=== PATIENT | male | born 1940 | race Caucasian/White ===

== ENCOUNTER 2024-10-11 18:42 | Inpatient (IN) | payer MEDICARE, OTHER ==
[~2024-10-11] VITALS: Ht 162.6 cm; Wt 90.6 kg
[~2024-10-11 18:42] MED LIST: ALLO100T PO; ALLUPURINOL; AMLO1TAB21 PO; ASA; CALC-30; GLUCOSAMINE; LIPITOR; METO-289 PO; METOPROLOL; NAP500T PO; OMEP20CA74 PO; OMEPRAZOLE; RAMI10CA38 PO; RAMIPRIL; SIMV20TA20 PO; TAFL1DRO OP; TAMS0.4C39 PO; TAMSULOSIN; TRAM50TA2 PO
--- NOTE | 2024-10-11 18:57 | ECG ---
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
--- NOTE | 2024-10-11 18:58 | ED.PDOC ---
History of Present Illness HPI Comments 83 y.o male with PMHx of HTN, DM, hyperlipidemia, prostate cancer, presents to the ED via EMS for a chief complaint of generalized weakness. EMS reports patient's friend took him to urgent care due to his weakness, was diagnosed with a UTI and discharged home. Patient then had a sudden episode of tremors with increased weakness and friend called 911. EMS reported EKG read AFIB RVR, gave 1 liter bag of IV fluids brining HR down to 100. Patient denies any chest pain, palpitations, SOB, nausea, vomiting, diarrhea, recent illness, fever, chills or leg swelling. Patient mentions recent mechanical fall on 09/25/24 which he had stitches placed on his forehead and removed on 10/07/24. Patient had a CT scan done then but no repeat. He denies any head pain, dizziness, lightheadedness. Chief Complaint: Tremors Time Seen by MD: 18:47 Primary Care Provider: ADE Hyman Notes: Nurses Notes, Nail Machine Operator Notes, Medications, Allergies Allergies: Uncoded Allergies: PCN (Allergy, 03/10/11) Home Meds Reported Medications Tafluprost (ZIOPTAN) 0.0015 % Presley, 0.0015 % OP, PRESLEY 11/21/14 Tramadol Hcl (Tramadol Hcl) 50 Mg Tab, 50 MG PO TID, TAB 11/21/14 Tamsulosin Hcl (Tamsulosin Hcl) 0.4 Mg Cap, 0.4 MG PO HS, CAP 11/21/14 Simvastatin (Simvastatin) 20 Mg Tab, 1 TAB PO QPM, #90 TAB 3 Refills 11/21/14 Ramipril (Ramipril) 10 Mg Cap, 10 MG PO HS, CAP 11/21/14 Omeprazole (PRILOSEC) 20 Mg Cap, 40 MG PO HS, CAP 15 Naproxen (NAPROSYN TABLET) 500 Mg Tb, 1 TAB PO BID, #60 TAB 11/21/14 Metoprolol Succinate (Metoprolol Succinate Er) 50 Mg Tab, 50 MG PO DAILY, TAB 11/21/14 Amlodipine Besylate (Amlodipine Besylate) 2.5 Mg Tab, 2.5 MG PO HS, TAB 11/21/14 Allopurinol (Allopurinol) 100 Mg Tab, 100 MG PO DAILY for 30 Days, MG 11/21/14 [Glucosamine] No Conflict Check 03/10/11 Calcium Carbonate-Vitamin D (Calcium) Tab 03/10/11 [Asa] No Conflict Check 03/10/11 [Tamsulosin] No Conflict Check 03/10/11 [Ramipril] No Conflict Check 03/10/11 [Omeprazole] No Conflict Check 03/10/11 [Metoprolol] No Conflict Check 03/10/11 [Lipitor] No Conflict Check 03/10/11 [Allupurinol] No Conflict Check 03/10/11 Information Source: Patient, Emergency Med Personnel Mode of Arrival: EMS Timing: Hours Duration: Since onset Past Medical History PAST MEDICAL HISTORY: CAD, Cancer, DM, Gout, HTN Surgical History: PTCA Surgical History (Other): bilateral hip and right knee replacement, Back stimulator, bariatric, cataracts Family History Family History: Unknown Social History Smoker: Non-Smoker Alcohol: Denies ETOH Use Drugs: Denies Drug Use Lives In: Home Constitutional: reports: weakness; denies: chills, diaphoresis, fatigue, fever, malaise, sweats, others EENTM: denies: blurred vision, double vision, ear bleeding, ear discharge, ear drainage, ear pain, ear ringing, eye pain, eye redness, hearing loss, mouth pain, mouth swelling, nasal discharge, nose bleeding, nose congestion, nose p ain, photophobia, tearing, throat pain, throat swelling, voice changes, others Respiratory: denies: cough, hemoptysis, orthopnea, SOB at rest, shortness of breath, SOB with excertion, stridor, wheezing, others Cardiovascular: denies: chest pain, dizzy spells, diaphoresis, Dyspnea on exertion, edema, irregular heart beat, left arm pain, lightheadedness, palpitations, PND, syncope, others Gastrointestinal: denies: abdomen distended, abdominal pain, blood streaked bowels, constipated, diarrhea, dysphagia, difficulty swallowing, hematemesis, melena, nausea, poor appetite, poor fluid intake, rectal bleeding, rectal pain, vomiting, others Genitourinary: denies: burning, dysuria, flank pain, frequency, hematuria, incontinence, penile discharge, penile sore, pain, testicle pain, testicle swelling, urgency, others Neurological: reports: tremors; denies: dizziness, fainting, headache, left sided numbness, left sided weakness, numbness, paresthesia, pre-existing deficit, right sided numbness, right sided weakness, seizure, speech problems, tingling, weakness, others Musculoskeletal: denies: back pain, gout, joint pain, joint swelling, muscle pain, muscle stiffness, neck pain, others Integumetry: denies: bruises, change in color, change in hair/nails, dryness, laceration, lesions, lumps, rash, wounds, others Allergic/Immunocompromised: denies: Difficulty Healing, Frequent Infections, Hives, Itching, others Hematologic/Lymphatic: denies: anemia, blood clots, easy bleeding, easy bruising, swollen glands, others Endocrine: denies: excessive hunger, excessive sweating, excessive thirst, excessive urination, flushing, intolerance to cold, intolerance to heat, unexplained weight gain, unexplained weight loss, others Psychiatric: denies: anxiety, bipolar disorder, depression, hopeless, panic disorder, schizophrenia, sleepless, suicidal, others All Other Systems: Reviewed and Negative Physical Exam General Appearance: Moderate Distress HEENT: Pale Conjuntivae (L), Pale Conjuntivae (R), Pharynx Normal, TMs Normal, Other (The patient has an old wound that has Steri-Strips to the forehead. The patient has ecchymosis around the facial area) Neck: Full Range of Motion, Non-Tender, Normal, Normal Inspection Respiratory: Chest Non-Tender, Lungs Clear, No Accessory Muscle Use, No Respiratory Distress, Normal Breath Sounds Cardiovascular: No Edema, No JVD, No Murmur, No Gallop, Normal Peripheral Pulses, Regular Rate/Rhythm Breast Exam: Deferred Gastrointestinal: No Organomegaly, Non Tender, No Pulsatile Mass, Normal Bowel Sounds, Soft Genitalia: Deferred Pelvic: Deferred Rectal: Deferred Extremities: No calf tenderness, Normal capillary refill, No pedal edema Musculoskeletal : Apperance: Normal Neurologic: Alert, can technician II-XII nml as Tested, Motor Weakness, Normal Affect, Normal Mood, No Sensory Deficits Cerebellar Function: Normal Reflexes: Normal Skin: Dry, Pallor, Warm Lymphatic: No Adenopathy Was a procedure done? Was a procedure done?: No EKG EKG : Pulse Rate (adult): 109 [place]: Normal Cardiac Rhythm: ST Differential Dx Considerations may include: Dehydration, Electrolyte Imbalance, Viral Syndrome, AFIB, Sinus tachycardia X-Ray, Labs, Meds, VS Vital Signs Date Time Temp Pulse Resp B/P (MAP) Pulse Ox O2 Delivery O2 Flow Rate FiO2 10/11/24 18:58 109 10/11/24 18:52 109 10/11/24 18:42 98.0 115 16 111/68 (82) 97 98.0 Lab Test 10/11/24 20:11 10/11/24 19:25 Range/Units Troponin I High Sensitivity 88 *H 53 </=54 ng/L White Blood Count 8.7 4.4-10.8 10^3/uL Red Blood Count 3.73 L 4.5-5.90 10^6/uL Hemoglobin 12.1 L 13.5-17.5 g/dL Hematocrit 35.2 L 41.0-53.0 % Mean Corpuscular Volume 94.4 80.0-100.0 fL Mean Corpuscular Hemoglobin 32.3 H 28.0-32.0 pg Mean Corpuscular Hemoglobin Concent 34.3 32.0-36.0 g/dL Red Cell Distribution Width 13.8 11.8-14.3 % Platelet Count 134 L 140-450 10^3/uL Mean Platelet Volume 9.9 6.9-10.8 fL Neutrophils (%) (Auto) 97.6 H 37.0-80.0 % Lymphocytes (%) (Auto) 1.0 L 10.0-50.0 % Monocytes (%) (Auto) 1.1 0.0-12.0 % Eosinophils (%) (Auto) 0.2 0.0-7.0 % Basophils (%) (Auto) 0.1 0.0-2.0 % Neutrophils # (Auto) 8.5 1.6-8.6 10 ^3/uL Lymphocytes # (Auto) 0.1 L 0.4-5.4 10 ^3/uL Monocytes # (Auto) 0.1 0-1.3 10 ^3/uL Eosinophils # (Auto) 0 0-0.8 10 ^3/uL Basophils # (Auto) 0 0-0.2 10 ^3/uL Nucleated Red Blood Cells 0.1 % Sodium Level 138 136-145 mmol/L Potassium Level 3.5 3.5-5.1 mmol/L Chloride Level 107 98-107 mmol/L Carbon Dioxide Level 16 L 20-31 mmol/L Anion Gap 15 5-15 Blood Urea Nitrogen 33 H 9-23 mg/dL Creatinine 0.91 0.700-1.30 mg/dL Glomerular Filtration Rate Calc 85 >90 mL/min BUN/Creatinine Ratio 36.3 H 10.0-20.0 Serum Glucose 69 L 74-106 mg/dL Calcium Level 8.1 L 8.7-10.4 mg/dL IV Hep-Lock was established The patient's CBC shows a hemoglobin of 12.1 and hematocrit of 36.2 The chemistry panel shows a CO2 level of 16 The rest of the CBC and chemistry panel are within normal limits The chest x-ray shows: IMPRESSION: No acute cardiopulmonary disease. Finding may represent vessel on end with prominent lymph nodes/mass not excluded. Consider CT for further evaluation if clinically indicated. At this time, the patient was being admitted The 1st troponin level came back within normal range but the 2nd troponin level came back at 88 There is a concern that the chest pain continues to elevate The patient was being admitted Images Reviewed?: Images reviewed and evaluated by me Time of 1ST Reevaluation: 18:51 Reevaluation 1ST: Unchanged Patient Education/Counseling: Diagnosis, Treatment, Prognosis Family Education/Counseling: No Family Present Departure 1 Departure Time of Disposition: 21:20 Impression: Primary Impression: Generalized weakness Additional Impression: Elevated troponin Disposition: ADMITTED INPATIENT Admit to: [facility] Condition: Fair Critical Care Note Critical Care Time?: Yes (45 min-critical care time only) Stability Stability form required: Yes Unstable for transfer: Telemetry monitoring (Telemetry monitoring required), ED Physician Assesment (Clinical assesment) I personally scribed for CHASTITY MORALES MD ([email or web address]) on 10/11/24 at 18:58. Electronically submitted by Anne-Marie Ruiz ([facility]). CHASTITY MORALES MD October 11, 2024 18:58
[2024-10-11 19:36] LABS: Basophils # (auto) 0 10 ^3/uL (0-0.2); Basophils % (auto) 0.1 % (0.0-2.0); Eosinophils # (auto) 0 10 ^3/uL (0-0.8); Eosinophils % (auto) 0.2 % (0.0-7.0); Hematocrit 35.2 % (41.0-53.0); Hemoglobin 12.1 g/dL (13.5-17.5); Lymphocytes # (auto) 0.1 10 ^3/uL (0.4-5.4); Mean Corpuscular Hemoglobin 32.3 pg (28.0-32.0); Mean Corpuscular Hgb Conc. 34.3 g/dL (32.0-36.0); Mean Corpuscular Volume 94.4 fL (80.0-100.0); Monocytes # (auto) 0.1 10 ^3/uL (0-1.3); Monocytes % (auto) 1.1 % (0.0-12.0); Neutrophils # (auto) 8.5 10 ^3/uL (1.6-8.6); Neutrophils % (auto) 97.6 % (37.0-80.0); Nucleated Red Blood Cells % 0.1 %; Platelet Count (auto) 134 10^3/uL (140-450); Red Blood Cells 3.73 10^6/uL (4.5-5.90); Red Cell Distribution Width 13.8 % (11.8-14.3); White Blood Cell 8.7 10^3/uL (4.4-10.8)
[2024-10-11 19:44] LABS: Potassium 3.5 mmol/L (3.5-5.1); Sodium 138 mmol/L (136-145)
[2024-10-11 19:45] LABS: Anion Gap 15 (5-15)
[2024-10-11 19:50] LABS: BUN/Creatinine Ratio 36.3 (10.0-20.0)
[2024-10-11 19:54] LABS: Blood Urea Nitrogen 33 mg/dL (9-23); Calcium 8.1 mg/dL (8.7-10.4); Carbon Dioxide 16 mmol/L (20-31); Chloride 107 mmol/L (98-107); Glucose 69 mg/dL (74-106)
--- NOTE | 2024-10-11 20:44 | DVH ---
CHEST RADIOGRAPH Indication: weakness Technique: Single frontal view of the chest was obtained Comparison: None FINDINGS: Lines and Tubes: None Lungs: No focal consolidation. Subtle 2.7 x 2.1 cm nodular density over the right medial lower lung z one overlying the cardiac silhouette with image rotation to the right Pleura: No effusion. No pneumothorax. Cardiomediastinal contours: Mild cardiomegaly. Bones: No acute osseous abnormality. Spinal stimulator wires are noted terminating over the midline l ower thoracic spine. IMPRESSION: No acute cardiopulmonary disease. Finding may represent vessel on end with prominent lymph nodes/mass not excluded. Consider CT for fu rther evaluation if clinically indicated.
[2024-10-11] MEDS ORDERED: ONDANSETRON HCL 4 MG/2 ML VIAL IV PRN (21:30)
[2024-10-11] MEDS ORDERED: ACETAMINOPHEN 325 MG TAB PO PRN (21:30)
[2024-10-11] MEDS ORDERED: DEXTROSE (50%) 50ML SYRG IV PRN (21:45)
[2024-10-11 21:59] LABS: Blood Alcohol < 3.0 mg/dL (<10)
[2024-10-11] MEDS ORDERED: amLODIPine BESYLATE 5 MG TAB PO SCH (22:00)
[2024-10-11] MEDS ORDERED: LISINOPRIL 20 MG TAB PO SCH (22:00)
[2024-10-11 22:07] LABS: CRP High Sensitivity 14.63 mg/dL (<1.0)
[2024-10-11 22:24] LABS: Erythrocyte Sedimentation Rate 51 mm/hr (0-20)
--- NOTE | 2024-10-11 22:40 | DVHHP2 ---
History of Present Illness History of Present Illness Patient is 83-year-old male with past medical history of hypertension, diabetes mellitus type 2, coronary artery disease, prostate cancer diagnosed in 2014, status post radiation therapy for 45 days , gout, status post bariatric surgery came with a complaint of generalized weakness. As per patient he has been feeling tired and fatigued since Friday10/08/24. Patient also reported poor appetite for a while. As per patient he went to urgent care center today where he was diagnosed UTI and was given antibiotic. But when he went home he was feeling tremor, worsening weakness and called 911. At the ER patient had tachycardia likely premature atrial contraction or multiple light full tachycardia, IV fluid was given, tachycardia. Patient denied any fever, diarrhea, dysuria, chest pain no shortness a breath, dysarthria. Patient mentions recent mechanical fall on 09/25/24 which he had stitches placed on his forehead and removed on 10/07/24. Patient had a CT scan done, as per patient no intracranial abnormality was noted. Patient noted to have bruise on the face and also bruise on the forehead. As per patient he went to [facility] after fall. Initial lab workup revealed hemoglobin 12.1, lactic acid 4.7, troponin I 53> 88> 96, BNP 163, BNP 163, CXR- No acute cardiopulmonary disease., CT angio chest- No evidence of acute intrathoracic abnormality identified. CT angio of the chest negative for pulmonary embolism. CT abdomen and pelvis revealed-Gallbladder distention with gallbladder stones and gallbladder sludge with possible pericholecystic edema which can be seen in setting of acute cholecystitis. Recommend further evaluation with right upper quadrant ultrasound. Possible intra and extrahepatic biliary ductal dilatation which is limited given lack of intravenous contrast. Past Medical History hypertension, diabetes mellitus type 2, coronary artery disease, prostate cancer diagnosed in 2014, status post radiation therapy for 45 days , gout, status post bariatric surgery Past Surgical History Patient has bilateral hip surgery, right knee surgery, back stimulator for chronic back pain, bariatric surgery, cataract surgery. Past Social History Patient lives alone, Patient denies smoking, occasional alcoholism, denies substance abuse Home meds-allopurinol, amlodipine, metoprolol 50 mg q.d., omeprazole, ramipril 10 mg p.o. daily, simvastatin, tamsulosin, Trulicity. Review of Systems Review of Systems Allergy- PCN Personal History/ Social History- Patient was seen today at the bedside. Patient Cardiovascular- deny acute chest pain or shortness of breath or cough or pal pitation Respiratory denies cough or short of breath or wheezing Gastrointestinal- denies any rectal bleeding, nausea or vomiting Musculoskeletal-denies acute joint swelling or tenderness or redness Neurological- denies acute dysarthria, dysphagia, change in vision Psychiatry- denies depression or SI or HI Skin- denies acute rash or purpura Allergies: Uncoded Allergies: PCN (Allergy, Unknown, 10/11/24) Medications Current Medications Medications Dose Ordered Sig/Javid Route Start Time Stop Time Status Last Admin Dose Admin Ondansetron HCl 4 mg Q4HP PRN IV 10/11/24 21:30 Enoxaparin Sodium 40 mg DAILY SC 10/12/24 10:00 Acetaminophen 650 mg Q6HP PRN PO 10/11/24 21:30 Pantoprazole Sodium 40 mg DAILY IV 10/12/24 10:00 Diagnostic Test (Pha) 1 strip ACHS 10/11/24 22:00 Insulin Human Regular ACHS SC 10/11/24 22:00 Dextrose 50 ml UD PRN IV 10/11/24 21:45 Allopurinol 100 mg DAILY PO 10/12/24 10:00 Metoprolol Succinate 50 mg DAILY PO 10/12/24 10:00 Lisinopril 20 mg HS PO 10/11/24 22:00 Tamsulosin HCl 0.4 mg HS PO 10/11/24 22:00 Amlodipine Besylate 2.5 mg HS PO 10/11/24 22:00 Atorvastatin Calcium 10 mg HS PO 10/11/24 22:00 Aspirin 81 mg DAILY PO 10/12/24 10:00 Exam Vital Signs Vital Signs Date Time Temp Pulse Resp B/P (MAP) Pulse Ox O2 Delivery O2 Flow Rate FiO2 10/11/24 18:58 109 10/11/24 18:42 98.0 16 111/68 (82) 97 98.0 Exam General examination- patient is awake, alert, oriented, bruise on the bilateral face and also on the scalp HEENT- PEERLA, no acute nasal discharge Cardiovascular- S1-S2 audible, rate and rhythm regular, no murmur Respiratory- CTAB, no wheeze or rhonchi Gastrointestinal-nontender, bowel sound+. Nondistended Musculoskeletal-no acute joint swelling or tenderness or redness Lower extremity- no leg edema Neurological- cranial nerves intact, no acute dysarthria or dysphagia Psychiatry- denies depression or SI or HI Skin- no acute rash or purpura Labs/Xrays Labs Test 10/11/24 22:10 10/11/24 20:11 10/11/24 19:25 Range/Units Magnesium Level 2.0 1.6-2.6 mg/dL White Blood Count 8.7 4.4-10.8 10^3/uL Red Blood Count 3.73 L 4.5-5.90 10^6/uL Hemoglobin 12.1 L 13.5-17.5 g/dL Hematocrit 35.2 L 41.0-53.0 % Mean Corpuscular Volume 94.4 80.0-100.0 fL Mean Corpuscular Hemoglobin 32.3 H 28.0-32.0 pg Mean Corpuscular Hemoglobin Concent 34.3 32.0-36.0 g/dL Red Cell Distribution Width 13.8 11.8-14.3 % Platelet Count 134 L 140-450 10^3/uL Mean Platelet Volume 9.9 6.9-10.8 fL Neutrophils (%) (Auto) 97.6 H 37.0-80.0 % Lymphocytes (%) (Auto) 1.0 L 10.0-50.0 % Monocytes (%) (Auto) 1.1 0.0-12.0 % Eosinophils (%) (Auto) 0.2 0.0-7.0 % Basophils (%) (Auto) 0.1 0.0-2.0 % Neutrophils # (Auto) 8.5 1.6-8.6 10 ^3/uL Lymphocytes # (Auto) 0.1 L 0.4-5.4 10 ^3/uL Monocytes # (Auto) 0.1 0-1.3 10 ^3/uL Eosinophils # (Auto) 0 0-0.8 10 ^3/uL Basophils # (Auto) 0 0-0.2 10 ^3/uL Nucleated Red Blood Cells 0.1 % Erythrocyte Sedimentation Rate 51 H 0-20 mm/hr Sodium Level 138 136-145 mmol/L Potassium Level 3.5 3.5-5.1 mmol/L Chloride Level 107 98-107 mmol/L Carbon Dioxide Level 16 L 20-31 mmol/L Anion Gap 15 5-15 Blood Urea Nitrogen 33 H 9-23 mg/dL Creatinine 0.91 0.700-1.30 mg/dL Glomerular Filtration Rate Calc 85 >90 mL/min BUN/Creatinine Ratio 36.3 H 10.0-20.0 Serum Glucose 69 L 74-106 mg/dL Calcium Level 8.1 L 8.7-10.4 mg/dL C-Reactive Protein High Sensitivity 14.63 H <1.0 mg/dL Lipase 20 12-53 U/L Thyroid Stimulating Hormone (TSH) 0.41 L 0.55-4.78 uIU/mL Plasma/Serum Blood Alcohol < 3.0 <10 mg/dL Assessment/Plan Assessment/Plan Assessment and plan-called Dr. Cox-[phone], and left a voice message, I also tested him regarding the patient. Later on I called Dr. Cox again and informed him with the patient Sepsis likely due to acute calculous cholecystitis and UTI Acute calculous cholecystitis Transaminitis UTI Suspected cholangitis-pending MRCP Lactic acidosis Atrial tachycardia Generalized weakness likely from UTI, malignancy, acute calculous cholecystitis, transaminitis NSTEMI type 2 likely due to demand lead ischemia Hypertension Diabetes mellitus type 2 Coronary artery disease History of prostate cancer status post radiation therapy Gout Status post bariatric surgery History of thyroid nodule as per patient hemoglobin 12.1, lactic acid 4.7, troponin I 53> 88> 96, BNP 163, CXR- No acute cardiopulmonary disease., CT angio chest- No evidence of acute intrathoracic abnormality identified. CT abdomen and pelvis revealed-Gallbladder distention with gallbladder stones and gallbladder sludge with possible pericholecystic edema which can be seen in setting of acute cholecystitis. Recommend further evaluation with right upper quadrant ultrasound. Possible intra and extrahepatic biliary ductal dilatation which is limited given lack of intravenous contrast. Plan Ordered echo 2D Ordered blood culture, urine culture Ordered ceftriaxone 1 g IV daily and metronidazole IV normal saline Ordered insulin sliding scale Ordered repeat EKG Ordered surgery consult Ordered ultrasound of the gallbladder Ordered MRCP Goals of care, Code status ; discussed with >15 minutes PUD prophylaxis: Pantoprazole DVT prophylaxis: Lovenox Plan discussed with Dr. Green , nursing staff, Total time spent on patient evaluation, chart review, assessment and plan, discussion discussion >35 minutes Plan discussed with: Patient, Other (RN) My Orders Orders - EDMOND JOHNS RESIDENT Procedure Category Date Status Time Admit ADMIT 10/11/24 Transmitted 21:19 Ondansetron Hcl PHA 10/11/24 In Process (Zofran) 21:30 Enoxaparin Sodium PHA 10/12/24 In Process (Lovenox) 10:00 Complete Blood Count LAB 10/12/24 Verified 04:00 Comprehensive LAB 10/12/24 Verified Metabolic Panel 04:00 Cardiac DIET 10/12/24 Transmitted Diet-2gna,Lofat,Lochol Breakfast Echo 2d Mode Cardiac US 10/11/24 Logged DOP 21:19 Condition: Unstable BHUPINDER 10/11/24 Transmitted 21:19 Acetaminophen Tablet PHA 10/11/24 In Process (Tylenol Tablet) 21:30 Notify Of Changes BHUPINDER 10/11/24 In Process From Base 21:19 Outsole Tacker For BHUPINDER 10/11/24 In Process 24 Hours 21:[address] 10/11/24 Taken Contrast 21:24 Drug Screen LAB 10/11/24 Logged 21:32 Rapid Influenza A&B LAB 10/11/24 Logged 21:32 Psa Total+% Free LAB 10/11/24 In Process 21:32 Electrocardigram EKG 10/11/24 Logged 21:34 B-Type Natriuretic LAB 10/11/24 In Process Peptide 21:34 Pantoprazole PHA 10/12/24 In Process (Protonix) 10:00 Urine Bacterial PILO 10/11/24 Logged Culture 21:35 Glucose Blood PHA 10/11/24 In Process (Accu-Chek Comfort 22:00 Insulin R (Human) PHA 10/11/24 In Process (Insulin R) 22:00 Dextrose 50% Syringe PHA 10/11/24 In Process 21:45 Allopurinol Tablet PHA 10/12/24 In Process (Zyloprim Tablet) 10:00 Metoprolol Xl PHA 10/12/24 In Process Succinate (Toprol Xl) 10:00 Tamsulosin PHA 10/11/24 In Process Hydrochloride (Flomax) 22:00 Amlodipine Tablet PHA 10/11/24 In Process (Norvasc Tablet) 22:00 Aspirin Tablet PHA 10/12/24 In Process 10:00 Atorvastatin (Lipitor) PHA 10/11/24 In Process 22:00 Lisinopril Tablet PHA 10/11/24 In Process (Zestril Tablet) 22:00 Lactic Acid W/ Reflex LAB 10/11/24 In Process Order 21:59 Date of Service: October 11, 2024 Billing Provider: LEXIE GREEN MD Common Visit Codes: 09684-[id number] INP/OBS CARE (HIGH) Secondary Visit Codes: 61031-[id number] CARE PLAN 30 MINUTES EDMOND JOHNS RESIDENT October 11, 2024 22:40
--- NOTE | 2024-10-11 22:43 | DVH ---
Procedure: CT CT ANGIO CHEST CONTRAST Reason for study/Clinical History: RULED OUT PULMONARY EMBOLISM Comparison Study: None Exam Date: 10/11/2024 09:35 PM Radiation Dose Information: CT Dose: CTDI volume is 5.92 mGy. Dose-length product is 1026.8 mGy*cm Contrast: Type of contrast: Omnipaque 350 Contrast inject: 100 mL Contrast wasted:0 TECHNIQUE: After the uneventful administration of intravenous contrast intravenously, CT imaging was performed through the chest. Coronal and sagittal reformations were performed by the technologist. FINDINGS: Lower Neck: Visualized portions of the thyroid gland are unremarkable. Aorta and Vasculature: Normal caliber of thoracic aorta. Lymph Nodes: No enlarged intrathoracic lymph nodes. Mediastinum: Heart size is normal. There is no pericardial effusion. The esophagus is unremarkable. Lungs: No focal consolidation, pleural effusion or significant pneumothorax. No suspicious pulmonary nodule or mass. Musculoskeletal: No acute osseous abnormality. Upper abdomen: Limited portions of the upper abdomen are unremarkable. IMPRESSION: 1. No evidence of acute intrathoracic abnormality identified. 2. All CT scans at this medical facility are performed using dose modulation techniques as appropriate to a performed exam including the following: Automated exposure control was utilized; adjustment of t he MA and/or KV according to patient size; and use of iterative reconstruction technique.
[2024-10-11 22:57] LABS: Lactic Acid w/Reflex 4.7 mmol/L (0.4-2.0)
[2024-10-11 23:10] VITALS: PULSE 108; RESP 18; O2SAT 95
[2024-10-11] MEDS ORDERED: SODIUM CHLORIDE 0.9% 2,000 ML IV ONE (23:15)
[2024-10-12 00:22] LABS: Albumin 3.3 g/dL (3.2-4.8)
[2024-10-12 00:25] LABS: Bilirubin, Direct 5.5 mg/dL (<0.3); Total Protein 5.2 g/dL (5.7-8.2)
[2024-10-12 00:37] LABS: Urine Bacteria FEW /hpf (None Seen); Urine Blood 1+ /uL (Negative); Urine Clarity Turbid (Clear); Urine Color Dark-Yellow (Yellow); Urine Mucus FEW (None Seen); Urine Protein, UAD 1+ (Negative); Urine Specific Gravity 1.046 (1.001-1.035); Urine Squamous Epithelial Cell FEW /hpf (<5); Urine Urobilinogen 3 mg/dL (Negative); Urine WBC 21 /HPF (0-3)
[2024-10-12] MEDS: InsuLIN REG 1unit/0.01ml Soln (100units/ml) SC SCH (00:49)
[2024-10-12] MEDS: SODIUM CHLORIDE 0.9% 1,000 ML IV ONE ×2 (00:49→08:06)
[2024-10-12] MEDS: ACCU-CHEK COMFORT CURVE STRIP VI SCH (00:49)
[2024-10-12] MEDS: PANTOPRAZOLE 40 MG/10 ML VIAL INJ IV ONE (00:50)
[2024-10-12] MEDS: IOHEXOL 350 MG/ML 100ML IJ ONE (00:50)
[2024-10-12] MEDS: ATORVASTATIN 20 MG TAB PO SCH (00:50)
[2024-10-12] MEDS: TAMSULOSIN HYDROCHLORIDE 0.4 MG CAP PO SCH (00:50)
[2024-10-12] MEDS: ASPirin 81 mg TAB PO ONE (00:50)
[2024-10-12] MEDS: cefTRIAXone 1GM/50ML D5W 50 ML IV ONE (00:50)
[2024-10-12] MEDS: SODIUM CHLORIDE 0.9% 500 ML IVB ONE (00:50)
[2024-10-12 01:03] LABS: Free T3 1.5 pg/mL (2.3-4.2); Free T4 (Free Thyroxine) 1.31 ng/dL (0.89-1.76)
[2024-10-12 01:25] LABS: Amphetamine Screen, Urine Neg (NEGATIVE); Barbiturate Scree,Urine Neg (NEGATIVE); Benzodiazephine Screen, Urine Neg (NEGATIVE); Cannabinoid Screen, Urine Neg (NEGATIVE); Cocaine Screen, Urine Neg (NEGATIVE); Opiate Scree,Urine Neg (NEGATIVE); Phencyclidine Screen, Urine Neg (NEGATIVE)
--- NOTE | 2024-10-12 05:50 | DVH ---
Exam: CT CT AB PEL WO CON-NO ORAL OR IV History: abdominal pian Comparison Study: None TECHNIQUE: Multidetector CT of the abdomen was performed from lung bases to pubic symphysis. Imaging was performed without IV contrast. Axial, coronal and sagittal multiplanar reformats were obtained fr om the axial data set by the technologist. Radiation Dose : 1. Abdomen/Pelvis: CTDIvol 21.5 mGy, DLP 1174.9 mGy*cm. FINDINGS: Evaluation of solid organs is limited due to lack of intravenous contrast use. Findings: Lung Bases: Mild bibasilar atelectasis. Moderate coronary artery atherosclerotic vascular disease. Liver: The liver is normal in size. No focal lesions. Gallbladder and Biliary Tree: Gallbladder distention with gallbladder sludge and small stones. Possib le pericholecystic edema. Possible extra and intrahepatic biliary ductal dilatation limited on this e valuation given lack of intravenous contrast. Spleen: Unremarkable Pancreas: The pancreas is grossly normal in appearance. Adrenal Glands: Unremarkable Kidneys: Bilateral renal cysts. Hyperdense material in the bilateral renal collecting system is favo red to be contrast administration from prior contrast. Evaluation for calcifications is limited given residual contrast. Nonspecific bilateral perinephric stranding. Bladder: Grossly unremarkable for degree of distention. Bowel: The stomach is grossly normal in appearance. Small bowel and colon are normal in caliber and d istribution. The appendix is not visualized; however, no secondary findings of acute appendicitis id entified. Ascites: Absent Lymphadenopathy: No mesenteric, retroperitoneal or periportal lymphadenopathy. Abdominal Wall and Mesentery: Unremarkable. Vasculature: The visualized abdominal aorta is normal in size and caliber. Evaluation of abdominal a nd pelvic vessels is limited due to lack of intravenous contrast. Inferior vena cava stent is visuali zed. Pelvic Organs: Unremarkable Musculoskeletal: No aggressive focal bony lesions, acute fractures or dislocation. Soft tissues: Large ventral hernia with a soft tissue defect measuring 14.8 cm containing bowel. [place] marion diverticulosis without CT evidence of acute diverticulitis. IMPRESSION: Gallbladder distention with gallbladder stones and gallbladder sludge with possible pericholecystic e maricarmen which can be seen in setting of acute cholecystitis. Recommend further evaluation with right up per quadrant ultrasound. Possible intra and extrahepatic biliary ductal dilatation which is limited g iven lack of intravenous contrast. Radiation optimization: All CT scans at this facility use at least one of these dose optimization gerardo hniques: automated exposure control mA and/or kV adjustment per patient size (includes targeted exam s where dose is matched to clinical indication) or iterative reconstruction.
[2024-10-12 06:18] LABS: Hematocrit 33.4 % (41.0-53.0); Hemoglobin 11.5 g/dL (13.5-17.5); Mean Corpuscular Hemoglobin 32.6 pg (28.0-32.0); Mean Corpuscular Hgb Conc. 34.5 g/dL (32.0-36.0); Mean Corpuscular Volume 94.5 fL (80.0-100.0); Platelet Count (auto) 85 10^3/uL (140-450); Red Blood Cells 3.53 10^6/uL (4.5-5.90); Red Cell Distribution Width 13.4 % (11.8-14.3); White Blood Cell 11.5 10^3/uL (4.4-10.8)
[2024-10-12 06:38] LABS: Lactic Acid w/Reflex 4.8 mmol/L (0.4-2.0)
[2024-10-12 06:39] LABS: Albumin 3.3 g/dL (3.2-4.8); Anion Gap 16 (5-15); BUN/Creatinine Ratio 32.4 (10.0-20.0); Chloride 106 mmol/L (98-107); Glucose 97 mg/dL (74-106); Sodium 137 mmol/L (136-145)
[2024-10-12 06:40] LABS: Alanine Aminotransferase 422 U/L (7-40); Aspartate Aminotransferase 322 U/L (13-40); Bilirubin, Total 7.8 mg/dL (0.2-1.0); Blood Urea Nitrogen 33 mg/dL (9-23); Calcium 8.6 mg/dL (8.7-10.4); Carbon Dioxide 15 mmol/L (20-31); Potassium 3.4 mmol/L (3.5-5.1); Total Protein 5.2 g/dL (5.7-8.2)
[2024-10-12 06:43] LABS: Basophils % (manual) 0 (0.0-2.0); Blast Cells 0; Metamyelocytes % 0; Myelocytes % 0; Promyelocytes % 0; Reactive Lymphocytes 0
[2024-10-12 06:46] LABS: Alkaline Phosphatase 1311 U/L (46-116)
[2024-10-12 07:29] LABS: COVID19 ANTIGEN SOFIA FIA NEGATIVE (NEGATIVE); Rapid Influenza A Negative (Negative); Rapid Influenza B Negative (Negative)
[2024-10-12 07:37] VITALS: PULSE 102; RESP 18; O2SAT 95
[2024-10-12] MEDS: metroNIDAZOLE 500MG/100ML 100 ML IV ONE (08:09)
--- NOTE | 2024-10-12 09:01 | DVH ---
INDICATION: ABDOMINAL PAIN TECHNIQUE: Multiple real-time sonographic images were obtained of the right upper quadrant. COMPARISON: 10/12/24 FINDINGS: The liver demonstrates heterogeneous echotexture without focal mass lesions. The liver gisselle ures 19 cm. The common duct measures 10 mm and is mildly dilated. Gallstones. The gallbladder wall measures 1 mm and is within normal limits. The right kidney measues 10.3 cm. The right kidney is normal in contour, size, and shape. The echoge nicity is normal. There is no hydronephrosis. The pancreas is not well visualized due to overlying bowel gas. IMPRESSION: Cholelithiasis with gallbladder distention. Sonographic eddy's sign is reportedly negative. No gall bladder wall thickening. If clinical concern for acute cholecystitis, consider further evaluation wit h nuclear medicine HIDA scan. Extrahepatic biliary ductal dilatation. Correlate with MRCP. Heterogeneous liver echotexture and hepatomegaly suggestive of chronic liver disease.
[2024-10-12] MEDS: POTASSIUM CHL 20MEQ/100ML 100 ML IV ONE (09:17)
[2024-10-12] MEDS: cefTRIAXone 1GM/50ML D5W 50 ML IV SCH (09:18)
[2024-10-12] MEDS: ENOXAPARIN SOD 40 MG/0.4 ML SYRINGE SC SCH (10:00)
[2024-10-12] MEDS: ASPirin 81 mg TAB PO SCH (10:00)
[2024-10-12] MEDS ORDERED: METOPROLOL SUCCINATE XL 50 MG TAB PO SCH (10:00)
[2024-10-12 10:32] LABS: Band Neutrophils % (manual) 38; Lymphocytes % (manual) 3 (10.0-50.0); Monocytes % (manual) 5 (0-12)
[2024-10-12 10:33] LABS: Platelet Estimate Decreased
[2024-10-12 10:34] LABS: Eosinophils % (manual) 0 (0-7)
[2024-10-12] MEDS: PANTOPRAZOLE 40 MG/10 ML VIAL INJ IV SCH (10:35)
[2024-10-12] MEDS: ALLOPURINOL 100 MG TAB PO SCH (10:35)
--- NOTE | 2024-10-12 14:00 | DVHPNRES ---
Progress Note Date Seen: October 12, 2024 Resident Creating Document: CLAY EDMONDSON RESIDENT Has the PT tested + for MRSA If YES, has PT been informed?: No Medical Necessity Reason Pt with a Central, PICC or Fol: No Subjective Review of Systems Jeremy Khan is an 83-year-old male with a complex medical history including hypertension, type 2 diabetes mellitus, coronary artery disease, prostate cancer (status post radiation therapy in 2015), gout, and prior bariatric surgery. He presents with generalized weakness and fatigue that began on 10/08/24. He also reports a poor appetite over an extended period. Intially he visited an urgent care center where he was diagnosed with a urinary tract infection and started on antibiotics. However, upon returning home, he experienced tremors and worsening weakness, prompting a 911 call. In the ER, he was found to have tachycardia, possibly due to premature atrial contractions or multifocal atrial tachycardia, and was treated with IV fluids. He denies fever, diarrhea, dysuria, chest pain, shortness of breath, or dysarthria. Notably, he had a mechanical fall on 09/25/24, resulting in a forehead laceration requiring stitches, which were removed on 10/07/24. A CT scan at that time showed no intracranial abnormalities. On examination, facial and forehead bruising were noted. Initial labs revealed hemoglobin 12.1, elevated lactic acid at 4.7, and rising troponin I levels (53 > 88 > 96), with a BNP of 163. Chest X-ray and CT angiogram were negative for acute cardiopulmonary disease or pulmonary embolism. CT abdomen and pelvis showed gallbladder distention with stones, sludge, and possible pericholecystic edema, raising concern for acute cholecystitis; further evaluation with RUQ ultrasound is recommended. Possible biliary ductal dilatation was also noted, though assessment was limited due to lack of IV contrast. Patient seen and examined at the bedside. Currently patient reporting mild abdominal pain but no new complaints. Patient is scheduled for cholecystectomy tommorrow. Patient reports: Feels better Objective vital signs Vital Sign Date Time Temp Pulse Resp B/P (MAP) Pulse Ox O2 Delivery O2 Flow Rate FiO2 10/12/24 12:55 94 20 93/54 (67) 96 10/12/24 07:47 97.7 97.7 10/12/24 07:37 Room Air* 0 21 Total Intake and Output 10/11/24 10/11/24 10/12/24 15:00 23:00 07:00 Intake Total 1550 ml Balance 1550 ml medications Current Medications Medications Dose Ordered Sig/Javid Route Start Time Stop Time Status Last Admin Dose Admin Ondansetron HCl 4 mg Q4HP PRN IV 10/11/24 21:30 Enoxaparin Sodium 40 mg DAILY SC 10/12/24 10:00 Acetaminophen 650 mg Q6HP PRN PO 10/11/24 21:30 Pantoprazole Sodium 40 mg DAILY IV 10/12/24 10:00 10/12/24 10:35 40 MG Diagnostic Test (Pha) 1 strip ACHS 10/11/24 22:00 10/12/24 12:47 1 STRIP Insulin Human Regular ACHS SC 10/11/24 22:00 Dextrose 50 ml UD PRN IV 10/11/24 21:45 Allopurinol 100 mg DAILY PO 10/12/24 10:00 10/12/24 10:35 100 MG Tamsulosin HCl 0.4 mg HS PO 10/11/24 22:00 10/12/24 00:50 0.4 MG Atorvastatin Calcium 10 mg HS PO 10/11/24 22:00 10/12/24 00:50 10 MG Aspirin 81 mg DAILY PO 10/12/24 10:00 Metronidazole 100 ml @ 100 mls/hr Q8HR IV 10/12/24 14:00 Meropenem 50 ml @ 17 mls/hr Q8HR IV 10/12/24 14:00 Examination Pt is lying on bed General Appearance: Alert, Oriented X3, Cooperative, Not in acute distress HEENT: bruise on the bilateral face and also on the scalp Respiratory: Clear to auscultation, Normal air movement, No added sounds Cardiovascular: Regular rate, Normal S1, Normal S2, No murmurs Abdominal: Active bowel sounds, Soft, no distention, positive Pedersen's sign, right upper quadrant tenderness Extremities: No edema, Normal pulses, No tenderness/swelling Skin: No Significant rash, except past surgical scars Neuro: Normal speech, sensorimotor deficits none Psych/Mental Status: Mental status NL, Mood NL Nurse was there as sharperone during examination laboratory and microbiology Laboratory Tests 10/12/24 05:56 Test 10/12/24 05:56 Range/Units Serum Glucose 97 74-106 mg/dL Labs and/or images reviewed: Labs reviewed by me, Image(s) reviewed by me Problem List/Assessment/Plan Problem List/Assessment/Plan # Acute cholelithiasis with a cholecystitis # Rule out cholangitis # Transaminitis likely due to above # Sepsis with impending shock likely due to above vs UTI # Lactic acidosis likely due to sepsis - continuously monitored lab - CT abdomen/ pelvis showed GB distention with the stones /sludge with a possible pericholecystic edema - ultrasound showed cholelithiasis with a distention and extrahepatic biliary ductal dilation - MRCP, pending - ordered blood cultures - meropenem and Flagyl - surgical oncologist evaluated the patient and advised to no cholecystectomy tomorrow - cardiology consult for preoperative clearance - NPO after midnight # Undiagnosed chronic liver disease # Hepatomegaly - monitor lab for now - USG showed heterogeneous liver echotexture and hepatomegaly suggestive of chronic liver disease - outpatient follow up with the GI # Atrial tachycardia # ? NSTEMI type 2 likely demand mediated in setting of ongoing shock # Hxof CAD s/p TIFFANIE - elevated troponins - EKG - telemetry - cardiology consult, pending # Diabetes mellitus type 2 hba1c 5.1- mild sliding scale, Accu-Cheks # r/o PE - CT angiogram showed no acute changes # Hx of Gout - Allopurinol # History of prostate cancer status post radiation therapy # History of thyroid nodule as per patient Protonix Lovenox NPO afret midnight Goals of care discussed with the patient for more than 27 minutes: Full code status Case discussed with Dr. Peña, patient, nurse Plan discussed with: Patient My Orders My Orders Orders - CLAY EDMONDSON Procedure Category Date Status Time *Consult Dr. Cristina CONS 10/12/24 Transmitted 12:00 Meropenem 1gm Ivpb PHA 10/12/24 In Process (Merrem 1gm/ Ns) 14:00 CLAY EDMONDSON October 12, 2024 14:00
[2024-10-12] MEDS: metroNIDAZOLE 500MG/100ML 100 ML IV SCH (14:16)
--- NOTE | 2024-10-12 14:25 | DVHINCON2 ---
Date of service: October 12, 2024 Allergies: Uncoded Allergies: PCN (Allergy, Unknown, 10/11/24) Home Meds Reported Medications Tafluprost (ZIOPTAN) 0.0015 % Whitney, 0.0015 % OP, WHITNEY 11/21/14 Tramadol Hcl (Tramadol Hcl) 50 Mg Tab, 50 MG PO TID, TAB 11/21/14 Tamsulosin Hcl (Tamsulosin Hcl) 0.4 Mg Cap, 0.4 MG PO HS, CAP 11/21/14 Simvastatin (Simvastatin) 20 Mg Tab, 1 TAB PO QPM, #90 TAB 3 Refills 11/21/14 Ramipril (Ramipril) 10 Mg Cap, 10 MG PO HS, CAP 11/21/14 Omeprazole (PRILOSEC) 20 Mg Cap, 40 MG PO HS, CAP 11/21/14 Naproxen (NAPROSYN TABLET) 500 Mg Tb, 1 TAB PO BID, #60 TAB 11/21/14 Metoprolol Succinate (Metoprolol Succinate Er) 50 Mg Tab, 50 MG PO DAILY, TAB 11/21/14 Amlodipine Besylate (Amlodipine Besylate) 2.5 Mg Tab, 2.5 MG PO HS, TAB 11/21/14 Allopurinol (Allopurinol) 100 Mg Tab, 100 MG PO DAILY for 30 Days, MG 11/21/14 [Glucosamine] No Conflict Check 03/10/11 Calcium Carbonate-Vitamin D (Calcium) Tab 03/10/11 [Asa] No Conflict Check 03/10/11 [Tamsulosin] No Conflict Check 03/10/11 [Ramipril] No Conflict Check 03/10/11 [Omeprazole] No Conflict Check 03/10/11 [Metoprolol] No Conflict Check 03/10/11 [Lipitor] No Conflict Check 03/10/11 [Allupurinol] No Conflict Check 03/10/11 Current Medications Current Medications Medications (Trade) Dose Ordered Sig/Javid Route PRN Reason Start Time Stop Time Status Last Admin Ondansetron HCl (Zofran) 4 mg Q4HP PRN IV NAUSEA / VOMITING 10/11/24 21:30 Enoxaparin Sodium (Lovenox) 40 mg DAILY SC 10/12/24 10:00 Acetaminophen (Tylenol Tablet) 650 mg Q6HP PRN PO PAIN SCALE 1-3 OR TEMP>100.4 10/11/24 21:30 Pantoprazole Sodium (Protonix) 40 mg DAILY IV 10/12/24 10:00 10/12/24 10:35 Diagnostic Test (Pha) (Accu-Chek Comfort Curve T) 1 strip ACHS 10/11/24 22:00 10/12/24 12:47 Insulin Human Regular (InsuLIN R) ACHS SC 10/11/24 22:00 Dextrose 50 ml UD PRN IV Blood Sugar LESS THAN 60 10/11/24 21:45 Allopurinol (Zyloprim Tablet) 100 mg DAILY PO 10/12/24 10:00 10/12/24 10:35 Metoprolol Succinate (Toprol Xl) 50 mg DAILY PO 10/12/24 10:00 10/11/24 23:28 DC Lisinopril (Zestril Tablet) 20 mg HS PO 10/11/24 22:00 10/11/24 23:28 DC Tamsulosin HCl (Flomax) 0.4 mg HS PO 10/11/24 22:00 10/12/24 00:50 Amlodipine Besylate (Norvasc Tablet) 2.5 mg HS PO 10/11/24 22:00 10/11/24 23:28 DC Atorvastatin Calcium (Lipitor) 10 mg HS PO 10/11/24 22:00 10/12/24 00:50 Aspirin 81 mg DAILY PO 10/12/24 10:00 Ceftriaxone Sodium 50 ml @ 100 mls/hr DAILY@09 IV 10/12/24 09:00 10/12/24 12:02 DC 10/12/24 09:18 Metronidazole 100 ml @ 100 mls/hr Q8HR IV 10/12/24 14:00 Meropenem 50 ml @ 17 mls/hr Q8HR IV 10/12/24 14:00 Vital Signs Vital Signs Date Time Temp Pulse Resp B/P (MAP) Pulse Ox O2 Delivery O2 Flow Rate FiO2 10/12/24 12:55 94 20 93/54 (67) 96 10/12/24 07:47 97.7 97.7 10/12/24 07:37 Room Air* 0 21 Labs/Diagnostic Data Labs Test 10/12/24 07:55 10/12/24 05:56 10/12/24 05:11 10/12/24 00:47 Range/Units Lactic Acid Level 4.1 *H 0.4-2.0 mmol/L White Blood Count 11.5 #H 4.4-10.8 10^3/uL Red Blood Count 3.53 L 4.5-5.90 10^6/uL Hemoglobin 11.5 L 13.5-17.5 g/dL Hematocrit 33.4 L 41.0-53.0 % Mean Corpuscular Volume 94.5 80.0-100.0 fL Mean Corpuscular Hemoglobin 32.6 H 28.0-32.0 pg Mean Corpuscular Hemoglobin Concent 34.5 32.0-36.0 g/dL Red Cell Distribution Width 13.4 11.8-14.3 % Platelet Count 85 L 140-450 10^3/uL Mean Platelet Volume 10.4 6.9-10.8 fL Neutrophils (%) (Auto) 37.0-80.0 % Lymphocytes (%) (Auto) 10.0-50.0 % Monocytes (%) (Auto) 0.0-12.0 % Basophils (%) (Auto) 0.0-2.0 % Neutrophils # (Auto) 1.6-8.6 10 ^3/uL Lymphocytes # (Auto) 0.4-5.4 10 ^3/uL Monocytes # (Auto) 0-1.3 10 ^3/uL Differential Total Cells Counted 100.0 100 Neutrophils % (Manual) 54 37.0-80.0 Band Neutrophils % (Manual) 38 Lymphocytes % (Manual) 3 L 10.0-50.0 Monocytes % (Manual) 5 0-12 Eosinophils % (Manual) 0 0-7 Basophils % (Manual) 0 0.0-2.0 Metamyelocytes % (manual) 0 Myelocytes % (Manual) 0 Promyelocytes % (Manual) 0 Blast Cells % (Manual) 0 Reactive Lymphocytes 0 Platelet Estimate Decreased Sodium Level 137 136-145 mmol/L Potassium Level 3.4 L 3.5-5.1 mmol/L Chloride Level 106 98-107 mmol/L Carbon Dioxide Level 15 L 20-31 mmol/L Anion Gap 16 H 5-15 Blood Urea Nitrogen 33 H 9-23 mg/dL Creatinine 1.02 0.700-1.30 mg/dL Glomerular Filtration Rate Calc 74 >90 mL/min BUN/Creatinine Ratio 32.4 H 10.0-20.0 Serum Glucose 97 74-106 mg/dL Hemoglobin A1c 5.1 <5.7 % A1C Calcium Level 8.6 L 8.7-10.4 mg/dL Total Bilirubin 7.8 H 0.2-1.0 mg/dL Aspartate Amino Transferase (AST) 322 H 13-40 U/L Alanine Aminotransferase (ALT) 422 H 7-40 U/L Alkaline Phosphatase 1311 H 46-116 U/L Ammonia 41 H 11-32 umol/L Total Protein 5.2 L 5.7-8.2 g/dL Albumin 3.3 3.2-4.8 g/dL Influenza Type A Antigen Negative Negative Influenza Type B Antigen Negative Negative SARS-CoV-2 Antigen (Rapid) Negative NEGATIVE POC Glucose 62 L 70-106 mg/dl Test 10/12/24 00:30 10/12/24 00:10 10/11/24 22:10 10/11/24 20:11 Range/Units Free Thyroxine (T4) Calculated 1.31 0.89-1.76 ng/dL Free Triiodothyronine (T3) pg/mL 1.50 L 2.3-4.2 pg/mL Urine Color Dark-yellow Yellow Urine Clarity Turbid H Clear Urine pH 6.0 5.0-9.0 Urine Specific [place] 1.046 H 1.001-1.035 Urine Protein 1+ H Negative Urine Ketones Negative Negative Urine Blood 1+ H Negative /uL Urine Nitrite Negative Negative Urine Bilirubin 2+ Negative Urine Urobilinogen 3 H Negative mg/dL Urine Leukocyte Esterase 1+ Negative /uL Urine RBC 57 0 - 3 /hpf Urine Microscopic WBC 21 H 0-3 /HPF Urine Squamous Epithelial Cells Few <5 /hpf Urine Bacteria Few H None Seen /hpf Urine Granular Casts Few 0 /lpf Urine Mucus Few None Seen Urine Glucose Normal Normal mg/dL Urine Opiates Screen Neg NEGATIVE Urine Fentanyl Screen Neg NEGATIVE Urine Barbiturates Screen Neg NEGATIVE Urine Phencyclidine Screen Neg NEGATIVE Urine Amphetamines Screen Neg NEGATIVE Urine Benzodiazepines Screen Neg NEGATIVE Urine Cocaine Screen Neg NEGATIVE Urine Cannabinoids Screen Neg NEGATIVE Direct Bilirubin 5.5 H <0.3 mg/dL Troponin I High Sensitivity 96 *H </=54 ng/L Magnesium Level 2.0 1.6-2.6 mg/dL Test 10/11/24 19:25 Range/Units Eosinophils (%) (Auto) 0.2 0.0-7.0 % Eosinophils # (Auto) 0 0-0.8 10 ^3/uL Basophils # (Auto) 0 0-0.2 10 ^3/uL Nucleated Red Blood Cells 0.1 % Erythrocyte Sedimentation Rate 51 H 0-20 mm/hr C-Reactive Protein High Sensitivity 14.63 H <1.0 mg/dL B-Type Natriuretic Peptide 163.28 0-100 pg/mL Lipase 20 12-53 U/L Thyroid Stimulating Hormone (TSH) 0.41 L 0.55-4.78 uIU/mL Plasma/Serum Blood Alcohol < 3.0 <10 mg/dL Assessment 83 year old male sustained a fall recently and has multiple bruises, abrasions and lacerations, has cholecystitis and markedly elevated bilirubin, MRCP report pending but there is evidence of biliary ductal dilatation. He will most likely need an ERCP prior to cholecystectomy Plan discussed with: Patient, Other LORNE BEAVERS MD October 12, 2024 14:25
--- NOTE | 2024-10-12 14:36 | DVH ---
[id number] MRI MRCP MRI Attending Name: NAT LANGKATHERIN RESIDENT COMPARISON: 10/12/2024 INDICATION: Abdominal pain RULE OUT OBSTRUCTION OF THE COMMON BILE DUCT TECHNIQUE: MRCP was performed without the use of intravenous contrast using a MRI imaging system. Three-dimensional MRCP was performed using maximum intensity projection reconstruction on an [facility] ent workstation under concurrent supervision. FINDINGS: Visualized lower thorax: Limited imaging of the thorax demonstrates no suspicious pleural or parenchy mal disease. Liver: Suggestion of T2 hyperintense vague abnormal signal in the liver which may represent metastati c disease. Gallbladder: Gallstones with gallbladder sludge and gallbladder distention. No gallbladder wall thick ening. Biliary system: There is a filling defect in the extrahepatic bile duct measuring 12 mm. There is ext rahepatic biliary ductal dilatation measuring 14 mm. There is intrahepatic biliary ductal dilatation . Spleen: Normal in morphology and signal intensity. Pancreas: Normal in morphology and signal intensity. Adrenal glands: Normal in morphology and signal intensity. Kidneys: The kidneys are symmetric in size and appearance. No hydronephrosis. Bilateral renal cysts. Urinary tract: The included ureters, as visualized, are normal in course and caliber. GI tract: The included portions of the bowel are within normal limits. Ventral bowel containing herni a. Lymph nodes: No enlarged lymph nodes. Peritoneum: No ascites. Musculoskeletal: The bone marrow signal intensity is within normal limits. IMPRESSION: 1. Filling defect in the extrahepatic bile duct measuring 12 mm. Extra and intrahepatic biliary duct al dilatation. Recommend further evaluation with ERCP. 2. Suggestion of T2 hyperintense vague abnormal signal in the liver which may represent metastatic di sease. Further evaluation with contrast-enhanced CT or MRI liver phase protocol is recommended. 3. Gallstones with gallbladder sludge and gallbladder distention. No gallbladder wall thickening.
--- NOTE | 2024-10-12 14:51 | DVHPN2 ---
Progress Note Date Seen: October 12, 2024 Has the PT tested + for MRSA If YES, has PT been informed?: No Medical Necessity Reason Pt with a Central, PICC or Fol: No Objective vital signs Vital Sign Date Time Temp Pulse Resp B/P (MAP) Pulse Ox O2 Delivery O2 Flow Rate FiO2 10/12/24 12:55 94 20 93/54 (67) 96 10/12/24 07:47 97.7 97.7 10/12/24 07:37 Room Air* 0 21 Total Intake and Output 10/11/24 10/11/24 10/12/24 15:00 23:00 07:00 Intake Total 1550 ml Balance 1550 ml medications Current Medications Medications Dose Ordered Sig/Javid Route Start Time Stop Time Status Last Admin Dose Admin Ondansetron HCl 4 mg Q4HP PRN IV 10/11/24 21:30 Enoxaparin Sodium 40 mg DAILY SC 10/12/24 10:00 Acetaminophen 650 mg Q6HP PRN PO 10/11/24 21:30 Pantoprazole Sodium 40 mg DAILY IV 10/12/24 10:00 10/12/24 10:35 40 MG Diagnostic Test (Pha) 1 strip ACHS 10/11/24 22:00 10/12/24 12:47 1 STRIP Insulin Human Regular ACHS SC 10/11/24 22:00 Dextrose 50 ml UD PRN IV 10/11/24 21:45 Allopurinol 100 mg DAILY PO 10/12/24 10:00 10/12/24 10:35 100 MG Tamsulosin HCl 0.4 mg HS PO 10/11/24 22:00 10/12/24 00:50 0.4 MG Atorvastatin Calcium 10 mg HS PO 10/11/24 22:00 10/12/24 00:50 10 MG Aspirin 81 mg DAILY PO 10/12/24 10:00 Metronidazole 100 ml @ 100 mls/hr Q8HR IV 10/12/24 14:00 10/12/24 14:16 100 MLS/HR Meropenem 50 ml @ 17 mls/hr Q8HR IV 10/12/24 14:00 laboratory and microbiology Laboratory Tests 10/12/24 05:56 Test 10/12/24 05:56 Range/Units Serum Glucose 97 74-106 mg/dL Problem List/Assessment/Plan Problem List/Assessment/Plan 10/12/24MRCP shows CBD stone, I have discussed with the need to transfer pt for an ERCP prior to cholecystectomy Plan discussed with: Other LORNE BEAVERS MD October 12, 2024 14:51
[2024-10-12] MEDS: MEROPENEM 1GM IVPB 50 ML IV SCH (14:59)
--- NOTE | 2024-10-12 16:48 | DVHDSRES ---
Discharge Summary Date of Admission Resident Creating Document: CLAY EDMONDSON RESIDENT October 11, 2024 at 21:19 Date of Discharge: October 12, 2024 Admitting Diagnosis Abdominal pain Labs/Diagnostic Data: Laboratory Results Test 10/12/24 07:55 10/12/24 05:56 10/12/24 05:11 10/12/24 00:47 Lactic Acid Level 4.1 mmol/L (0.4-2.0) White Blood Count 11.5 10^3/uL (4.4-10.8) Red Blood Count 3.53 10^6/uL (4.5-5.90) Hemoglobin 11.5 g/dL (13.5-17.5) Hematocrit 33.4 % (41.0-53.0) Mean Corpuscular Volume 94.5 fL (80.0-100.0) Mean Corpuscular Hemoglobin 32.6 pg (28.0-32.0) Mean Corpuscular Hemoglobin Concent 34.5 g/dL (32.0-36.0) Red Cell Distribution Width 13.4 % (11.8-14.3) Platelet Count 85 10^3/uL (140-450) Mean Platelet Volume 10.4 fL (6.9-10.8) Neutrophils (%) (Auto) % (37.0-80.0) Lymphocytes (%) (Auto) % (10.0-50.0) Monocytes (%) (Auto) % (0.0-12.0) Basophils (%) (Auto) % (0.0-2.0) Neutrophils # (Auto) 10 ^3/uL (1.6-8.6) Lymphocytes # (Auto) 10 ^3/uL (0.4-5.4) Monocytes # (Auto) 10 ^3/uL (0-1.3) Differential Total Cells Counted 100.0 (100) Neutrophils % (Manual) 54 (37.0-80.0) Band Neutrophils % (Manual) 38 Lymphocytes % (Manual) 3 (10.0-50.0) Monocytes % (Manual) 5 (0-12) Eosinophils % (Manual) 0 (0-7) Basophils % (Manual) 0 (0.0-2.0) Metamyelocytes % (manual) 0 Myelocytes % (Manual) 0 Promyelocytes % (Manual) 0 Blast Cells % (Manual) 0 Reactive Lymphocytes 0 Platelet Estimate Decreased Sodium Level 137 mmol/L (136-145) Potassium Level 3.4 mmol/L (3.5-5.1) Chloride Level 106 mmol/L (98-107) Carbon Dioxide Level 15 mmol/L (20-31) Anion Gap 16 (5-15) Blood Urea Nitrogen 33 mg/dL (9-23) Creatinine 1.02 mg/dL (0.700-1.30) Glomerular Filtration Rate Calc 74 mL/min (>90) BUN/Creatinine Ratio 32.4 (10.0-20.0) Serum Glucose 97 mg/dL (74-106) Hemoglobin A1c 5.1 % A1C (<5.7) Calcium Level 8.6 mg/dL (8.7-10.4) Total Bilirubin 7.8 mg/dL (0.2-1.0) Aspartate Amino Transferase (AST) 322 U/L (13-40) Alanine Aminotransferase (ALT) 422 U/L (7-40) Alkaline Phosphatase 1311 U/L (46-116) Ammonia 41 umol/L (11-32) Total Protein 5.2 g/dL (5.7-8.2) Albumin 3.3 g/dL (3.2-4.8) Influenza Type A Antigen Negative (Negative) Influenza Type B Antigen Negative (Negative) SARS-CoV-2 Antigen (Rapid) Negative (NEGATIVE) POC Glucose 62 mg/dl (70-106) Test 10/12/24 00:30 10/12/24 00:10 10/11/24 22:10 10/11/24 20:11 Free Thyroxine (T4) Calculated 1.31 ng/dL (0.89-1.76) Free Triiodothyronine (T3) pg/mL 1.50 pg/mL (2.3-4.2) Urine Color Dark-yellow (Yellow) Urine Clarity Turbid (Clear) Urine pH 6.0 (5.0-9.0) Urine Specific [place] 1.046 (1.001-1.035) Urine Protein 1+ (Negative) Urine Ketones Negative (Negative) Urine Blood 1+ /uL (Negative) Urine Nitrite Negative (Negative) Urine Bilirubin 2+ (Negative) Urine Urobilinogen 3 mg/dL (Negative) Urine Leukocyte Esterase 1+ /uL (Negative) Urine RBC 57 /hpf (0 - 3) Urine Microscopic WBC 21 /HPF (0-3) Urine Squamous Epithelial Cells Few /hpf (<5) Urine Bacteria Few /hpf (None Seen) Urine Granular Casts Few /lpf (0) Urine Mucus Few (None Seen) Urine Glucose Normal mg/dL (Normal) Urine Opiates Screen Neg (NEGATIVE) Urine Fentanyl Screen Neg (NEGATIVE) Urine Barbiturates Screen Neg (NEGATIVE) Urine Phencyclidine Screen Neg (NEGATIVE) Urine Amphetamines Screen Neg (NEGATIVE) Urine Benzodiazepines Screen Neg (NEGATIVE) Urine Cocaine Screen Neg (NEGATIVE) Urine Cannabinoids Screen Neg (NEGATIVE) Direct Bilirubin 5.5 mg/dL (<0.3) Troponin I High Sensitivity 96 ng/L (</=54) Magnesium Level 2.0 mg/dL (1.6-2.6) Test 10/11/24 19:25 Eosinophils (%) (Auto) 0.2 % (0.0-7.0) Eosinophils # (Auto) 0 10 ^3/uL (0-0.8) Basophils # (Auto) 0 10 ^3/uL (0-0.2) Nucleated Red Blood Cells 0.1 % Erythrocyte Sedimentation Rate 51 mm/hr (0-20) C-Reactive Protein High Sensitivity 14.63 mg/dL (<1.0) B-Type Natriuretic Peptide 163.28 pg/mL (0-100) Lipase 20 U/L (12-53) Thyroid Stimulating Hormone (TSH) 0.41 uIU/mL (0.55-4.78) Plasma/Serum Blood Alcohol < 3.0 mg/dL (<10) Other Laboratory Tests 10/12/24 05:56 Brief Hx & Hospital Course: Jeremy Khan is an 83-year-old male with a complex medical history including hypertension, type 2 diabetes mellitus, coronary artery disease, prostate cancer (status post radiation therapy in 2014), gout, and prior bariatric surgery. He presents with generalized weakness and fatigue that began on 10/08/24. He also reports a poor appetite over an extended period. Intially he visited an urgent care center where he was diagnosed with a urinary tract infection and started on antibiotics. However, upon returning home, he experienced tremors and worsening weakness, prompting a 911 call. In the ER, he was found to have tachycardia, possibly due to premature atrial contractions or multifocal atrial tachycardia, and was treated with IV fluids. He denies fever, diarrhea, dysuria, chest pain, shortness of breath, or dysarthria. Notably, he had a mechanical fall on 09/25/24, resulting in a forehead laceration requiring stitches, which were removed on 10/07/24. A CT scan at that time showed no intracranial abnormalities. The patient was admitted with acute cholelithiasis and cholecystitis, with concern for possible cholangitis. He presented with transaminitis and sepsis with impending shock, likely secondary to biliary pathology versus urinary tract infection. Lactic acidosis was noted, likely due to sepsis. Imaging studies, including a CT scan of the abdomen and pelvis, revealed gallbladder distention with stones and sludge, along with possible pericholecystic edema. Ultrasound confirmed cholelithiasis with gallbladder distention and extrahepatic biliary ductal dilation. An MRCP was subsequently performed and revealed a common bile duct (CBD) stone. Based on these findings, the surgical team recommended ERCP prior to cholecystectomy. As ERCP is not available at this facility, the patient is being transferred to a higher level of care for further management. He is currently stable for transfer. Additional diagnoses include undiagnosed chronic liver disease with hepatomegaly, as evidenced by heterogeneous liver echotexture on ultrasound. Outpatient follow-up with gastroenterology is advised. The patient also has a history of atrial tachycardia and coronary artery disease status post drug- eluting stent placement, with elevated troponins suggestive of a possible type 2 NSTEMI in the setting of sepsis. Cardiology consultation was requested for preoperative clearance. Diabetes mellitus type 2 was managed with a mild sliding scale insulin regimen and Accu-Chek monitoring. Pulmonary embolism was ruled out via CT angiogram. Additional history includes gout, managed with allopurinol, prostate cancer status post radiation therapy, and a thyroid nodule as per patient report. The patient was treated with IV fluids, broad-spectrum antibiotics (Meropenem and Flagyl), and kept NPO in preparation for surgery. Blood cultures were obtained, and the patient was continuously monitored. Given the need for ERCP and the limitations of this facility, transfer to a tertiary care center is warranted and the patient is stable for transport. Examination Pt is lying on bed General Appearance: Alert, Oriented X3, Cooperative, Not in acute distress HEENT: bruise on the bilateral face and also on the scalp Respiratory: Clear to auscultation, Normal air movement, No added sounds Cardiovascular: Regular rate, Normal S1, Normal S2, No murmurs Abdominal: Active bowel sounds, Soft, no distention, positive Pedersen's sign, right upper quadrant tenderness Extremities: No edema, Normal pulses, No tenderness/swelling Skin: No Significant rash, except past surgical scars Neuro: Normal speech, sensorimotor deficits none Psych/Mental Status: Mental status NL, Mood NL Nurse was there as sharperone during examination Operations or Procedures MRI MRCP MRI IMPRESSION: 1. Filling defect in the extrahepatic bile duct measuring 12 mm. Extra and intrahepatic biliary ductal dilatation. Recommend further evaluation with ERCP. 2. Suggestion of T2 hyperintense vague abnormal signal in the liver which may represent metastatic disease. Further evaluation with contrast-enhanced CT or MRI liver phase protocol is recommended. 3. Gallstones with gallbladder sludge and gallbladder distention. No gallbladder wall thickening. --- CT CT AB PEL WO CON-NO ORAL OR IV IMPRESSION: Gallbladder distention with gallbladder stones and gallbladder sludge with possible pericholecystic edema which can be seen in setting of acute cholecystitis. Recommend further evaluation with right upper quadrant ultrasound. Possible intra and extrahepatic biliary ductal dilatation which is limited given lack of intravenous contrast. --- Multiple real-time sonographic images were obtained of the right upper quadrant. IMPRESSION: Cholelithiasis with gallbladder distention. Sonographic pedersen's sign is reportedly negative. No gallbladder wall thickening. If clinical concern for acute cholecystitis, consider further evaluation with nuclear medicine HIDA scan. Extrahepatic biliary ductal dilatation. Correlate with MRCP. Heterogeneous liver echotexture and hepatomegaly suggestive of chronic liver disease. --- CT CT ANGIO CHEST CONTRAST IMPRESSION: 1. No evidence of acute intrathoracic abnormality identified. Condition at Discharge: Stable Final Diagnosis/Problems List # Acute cholelithiasis with a cholecystitis # CBD stone # Rule out cholangitis # Transaminitis likely due to above # Sepsis with impending shock likely due to above vs UTI # Lactic acidosis likely due to sepsis # Undiagnosed chronic liver disease # Hepatomegaly # Atrial tachycardia # ? NSTEMI type 2 likely demand mediated in setting of ongoing shock # Hxof CAD s/p TIFFANIE # Diabetes mellitus type 2 hba1c 5.1- mild sliding scale, Accu-Cheks # ruled out PE # Hx of Gout # History of prostate cancer status post radiation therapy # History of thyroid nodule as per patien Discharge Disposition: Acute Care Facility Discharge Instruct/Medications Diet: See Comment Diet comment: NPO until surgery Activity: No Restrictions, As Tolerated Follow Up/Referral: PCP GI for ERCP Medications: per emr Discharge Statement: "Patient was advised to return to the ER or call 911 if any headaches, dizziness, shortness of breath, chest pain, abdominal pain, bleeding, fevers, or worsening of medical condition. Patient was counseled about treatment plan, medications, possible side effects, patientverbalized understanding. All questions were answered to the best of my ability. This discharge took greater then 30 minutes in planning, reviewing documentation, counseling the patient, and discussing with other team members." ASSESSMENT ASSESSMENT Assessment # Acute cholelithiasis with a cholecystitis # CBD stone # Rule out cholangitis # Transaminitis likely due to above # Sepsis with impending shock likely due to above vs UTI # Lactic acidosis likely due to sepsis # Undiagnosed chronic liver disease # Hepatomegaly # Atrial tachycardia # ? NSTEMI type 2 likely demand mediated in setting of ongoing shock # Hxof CAD s/p TIFFANIE # Diabetes mellitus type 2 hba1c 5.1- mild sliding scale, Accu-Cheks # ruled out PE # Hx of Gout # History of prostate cancer status post radiation therapy # History of thyroid nodule as per patien Date of Service: October 12, 2024 Billing Provider: KATH VALDES MD Common Visit Codes: 22086-ZCZ/OBS DISCH DAY >30min Secondary Visit Codes: 74572-[id number] CARE PLAN 30 MINUTES CLAY EDMONDSON October 12, 2024 16:48 KATH VALDES MD October 12, 2024 20:01
[2024-10-12 18:46] VITALS: PULSE 78; RESP 18; O2SAT 94
[2024-10-12 20:00] VITALS: PULSE 105; RESP 18; O2SAT 96
[2024-10-12 20:34] VITALS: BP 119/56; PULSE 78; RESP 18; TEMP 97.4; O2SAT 94
[2024-10-12 21:00] VITALS: BP 129/70; PULSE 107; RESP 17; TEMP 97.8; O2SAT 97
[2024-10-12] MEDS ORDERED: METO25TA5 PO (21:08)
[2024-10-12] MEDS ORDERED: AMLO1TAB23 PO (21:08)
[2024-10-12] MEDS ORDERED: DULA1INJ SC (21:09)
[2024-10-12] MEDS ORDERED: ALEN35TA18 PO (21:09)
[2024-10-12] MEDS ORDERED: TIMO0.5S32 EACHEYE (21:09)
[2024-10-12] MEDS ORDERED: TRAV0.0013 (21:09)
[2024-10-12] MEDS ORDERED: ATOR40TA52 PO (21:09)
[2024-10-12 23:37] VITALS: BP 125/72; PULSE 102; RESP 18; TEMP 98.7; O2SAT 96
[2024-10-13 01:00] VITALS: BP 120/79; PULSE 105; RESP 17; TEMP 97.6; O2SAT 96
[2024-10-13 08:07] LABS: Prostate Specific Antigen <0.1 ng/mL (0.0-4.0)
[2024-10-13 11:13] LABS: Hepatitis A Ab IgM Negative; Hepatitis B Core IgM Negative (Negative); Hepatitis B Surface Antibody Negative (Negative); Hepatitis B Surface Antigen Negative (Negative); Hepatitis C Antibody Negative (Negative)
[2024-10-13 13:07] LABS: PSA Free <0.02 ng/mL
== END 2024-10-13 01:38 | disposition short-term general hospital (02) | DRG 871 ==
LOC: EDBD 18:42 → EDUNIT# 18:42 → ER 18:50 → OVERFLOW 21:19 → TELE-WESTW 10-12 18:41
PROVIDERS: ADMIT Internal Medicine Geriatric Medicine; ATTEND Emergency Medicine
DX: A41.9 Sepsis, unspecified organism (principal); I21.A1 Myocardial infarction type 2; R65.21 Severe sepsis with septic shock; E87.20 Acidosis, unspecified; N39.0 Urinary tract infection, site not specified; I47.19 Other supraventricular tachycardia; K80.62 Calculus of gallbladder and bile duct with acute cholecystitis without obstruction; K83.09 Other cholangitis; Z96.651 Presence of right artificial knee joint; E11.9 Type 2 diabetes mellitus without complications; I10 Essential (primary) hypertension; E04.1 Nontoxic single thyroid nodule; S00.83XA Contusion of other part of head, initial encounter; Z20.822 Contact with and (suspected) exposure to COVID-19; X58.XXXA Exposure to other specified factors, initial encounter; I48.91 Unspecified atrial fibrillation; M10.9 Gout, unspecified; I25.10 Atherosclerotic heart disease of native coronary artery without angina pectoris; R16.0 Hepatomegaly, not elsewhere classified; E78.5 Hyperlipidemia, unspecified; G89.29 Other chronic pain; M54.9 Dorsalgia, unspecified; R74.01 Elevation of levels of liver transaminase levels; Z85.46 Personal history of malignant neoplasm of prostate; Z88.0 Allergy status to penicillin; Z79.899 Other long term (current) drug therapy; Z98.84 Bariatric surgery status; Z92.3 Personal history of irradiation; Y93.89 Activity, other specified; Y92.89 Other specified places as the place of occurrence of the external cause; Y99.8 Other external cause status
CPT/HCPCS: 36415; 71045; 71275; 74176; 74181; 76705; 80048; 80053; 80074; 80076; 80307; 80320; 81001; 82140; 82962; 83036; 83605; 83690; 83735; 83880; 84154; 84439; 84443; 84481; 84484; 85007; 85025; 85027; 85652; 86141; 86706; 87040; 87086; 87426; 87804; 93005; 99291; G0378; J2185; J2470; J3480; J3490